=== PATIENT | female | born 1990 | race Caucasian/White ===

== ENCOUNTER 2022-10-20 12:14 | Observation (INO) | payer BC, MEDICAID ==
[~2022-10-20] VITALS: Ht 175.3 cm; Wt 98.4 kg
== END 2022-10-20 14:10 | disposition home or self-care (01) ==
LOC: LDH 12:14
PROVIDERS: ADMIT Obstetrics & Gynecology; ATTEND Obstetrics & Gynecology
DX: O36.5930 Maternal care for other known or suspected poor fetal growth, third trimester, not applicable or unspecified (principal); Z3A.36 36 weeks gestation of pregnancy; Z87.891 Personal history of nicotine dependence
CPT/HCPCS: 59025; 76819; 76805; G0378 ×2; G0379

== ENCOUNTER 2022-10-31 14:04 | Observation (INO) | payer BC, MEDICAID ==
[~2022-10-31] VITALS: Ht 175.3 cm; Wt 99.8 kg
== END 2022-10-31 15:25 | disposition home or self-care (01) ==
LOC: LDH 14:04
PROVIDERS: ADMIT Obstetrics & Gynecology; ATTEND Obstetrics & Gynecology
DX: O26.893 Other specified pregnancy related conditions, third trimester (principal); R42 Dizziness and giddiness; Z3A.37 37 weeks gestation of pregnancy
CPT/HCPCS: 59025; G0378; G0379